=== PATIENT | female | born 1940 | race Caucasian/White ===

== ENCOUNTER 2018-11-10 05:47 | Inpatient (IN) ==
[2018-11-07 11:37] LABS: Basophils % 0.2 % (0.0-0.8); Eosinophils # 0.1 10*3/uL (0.0-0.87); Eosinophils % 0.5 % (0.00-10.9); Hematocrit 36.1 VOL% (35.7-47.0); Hemoglobin 11.3 GM/DL (12.0-16.0); Immature Granulocytes % 0.8 %; Immature Granulocytes Absolute 0.07 #; Lymphocytes # 0.9 10*3/uL (1.4-4.0); Mean Corpuscular HGB Conc 31.3 GM/DL (32-36); Mean Corpuscular Hemoglobin 27 PG (27-34); Mean Corpuscular Volume 86.2 FL (87-102); Monocytes # 0.5 10*3/uL (0.11-0.8); Monocytes % 5.7 % (1.7-12.7); Neutrophils # 7.7 10*3/uL (1.4-7.4); Neutrophils % 82.8 % (38.7-73.9); Platelet Count 330 T/CUMM (130-400); Red Blood Count 4.19 MC/CUMM (3.8-5.5); Red Cell Distribution Width 13.6 % (9.3-17.3); White Blood Count 9.3 T/CUMM (4-12)
[2018-11-07 12:07] LABS: Alanine Aminotransferase 15 U/L (13-56); Albumin 3.4 G/DL (3.4-5.0); Alkaline Phosphatase 127 U/L (45-117); Aspartate Amino Transferase 12 U/L (0-37); Bilirubin,Total < 0.39 MG/DL (0.2-1.0); Blood Urea Nitrogen 12 MG/DL (7-18); Calcium 9.3 MG/DL (8.5-10.1); Glucose 80 MG/DL (74-106); Osmolality,Calculated 273.7 MOS/KG (273-304); Potassium 3.5 MMOL/L (3.5-5.1); Sodium 138 MMOL/L (136-145)
[2018-11-10] MEDS ORDERED: LIDOCAINE 1%/EPI INJ 20 ML VIAL ONE ×2 (06:16→07:47)
[2018-11-10] MEDS ORDERED: metroNIDAZOLE INJ 500 MG in PREMIX 1 EACH IV ONE (06:30)
[2018-11-10] MEDS ORDERED: CIPROFLOXACIN INJ 400 MG in PREMIX 1 EACH IV ONE (06:30)
[2018-11-10] MEDS ORDERED: diphenhydrAMINE 50 MG/1 ML VIAL IV PRN (06:43)
[2018-11-10] MEDS ORDERED: PROMETHAZINE INJ 25 MG in SODIUM CHLORIDE 0.9% 50 ML IV PRN (06:43)
[2018-11-10] MEDS ORDERED: ONDANSETRON 4 MG/2 ML VIAL IV PRN (06:43)
[2018-11-10] MEDS ORDERED: MEPERIDINE 25 MG/1 ML VIAL IV PRN (06:43)
[2018-11-10] MEDS ORDERED: HYDROmorphone 2 MG/1 ML VIAL IV PRN (06:43)
[2018-11-10] MEDS ORDERED: TISSUE ADHESIVE 1 EACH APPLICATOR TOP ONE (06:51)
[2018-11-10] MEDS ORDERED: LEVOFLOXACIN INJ 100 ML IV ONE (07:47)
[2018-11-10] MEDS ORDERED: LEVOFLOXACIN INJ 500 MG in PREMIX 1 EACH IV ONE (07:54)
[2018-11-10] MEDS ORDERED: MORPHINE 4 MG/1 ML VIAL IV PRN (08:59)
[2018-11-10] MEDS ORDERED: DEXTROSE 5% NACL 0.45% 1,000 ML IV SCH (09:00)
[2018-11-10] MEDS ORDERED: fentaNYL 100 MCG/2 ML VIAL ONE (09:10)
[2018-11-10] MEDS ORDERED: SEVOFLURANE 1 UNIT/15 MINUTE INH ONE (09:10)
[2018-11-10] MEDS ORDERED: DEXAMETHASONE 10 MG/1 ML VIAL ONE (09:10)
[2018-11-10] MEDS ORDERED: PROPOFOL 200 MG/20 ML VIAL IV ONE (09:10)
[2018-11-10] MEDS ORDERED: ONDANSETRON 4 MG/2 ML VIAL ONE ×2 (09:11→09:18)
[2018-11-10] MEDS ORDERED: LACTATED RINGERS 1,000 ML IV ONE (09:11)
[2018-11-10] MEDS ORDERED: ESMOLOL 100 MG/10 ML VIAL IV ONE (09:11)
[2018-11-10] MEDS ORDERED: PHENYLEPHRINE 1 MG/10 ML SYRINGE IV ONE (09:11)
[2018-11-10] MEDS ORDERED: NEOSTIGMINE 10 MG/10 ML VIAL ONE (09:11)
[2018-11-10] MEDS ORDERED: ETOMIDATE 40 MG/20 ML VIAL IV ONE (09:11)
[2018-11-10] MEDS ORDERED: ROCURONIUM 100 MG/10 ML VIAL IV ONE (09:11)
[2018-11-10] MEDS ORDERED: GLYCOPYRROLATE 0.4 MG/2 ML VIAL ONE (09:11)
[2018-11-10] MEDS ORDERED: HYDROmorphone 2 MG/1 ML VIAL ONE (09:18)
[2018-11-10 09:54] LABS: Hematocrit 31.4 VOL% (35.7-47.0); Hemoglobin 9.7 GM/DL (12.0-16.0)
[2018-11-10] MEDS: ONDANSETRON 4 MG/2 ML VIAL IV PRN (11:08)
[2018-11-10] MEDS: ACETAMINOPHEN 325 MG/10.15 ML UDCUP PO PRN ×2 (15:11→21:47)
[2018-11-10 17:36] LABS: Hematocrit 35.1 VOL% (35.7-47.0); Hemoglobin 11.2 GM/DL (12.0-16.0)
[2018-11-10] MEDS: ROSUVASTATIN 10 MG TABLET PO SCH (20:21)
[2018-11-11 01:21] LABS: Hematocrit 32.9 VOL% (35.7-47.0); Hemoglobin 10.5 GM/DL (12.0-16.0)
[2018-11-11] MEDS: ACETAMINOPHEN 325 MG/10.15 ML UDCUP PO PRN (05:13)
[2018-11-11] MEDS: LEVOTHYROXINE 50 MCG TABLET PO SCH (06:10)
[2018-11-11 06:16] LABS: Basophils % 0.1 % (0.0-0.8); Hematocrit 34.8 VOL% (35.7-47.0); Hemoglobin 10.8 GM/DL (12.0-16.0); Immature Granulocytes % 0.7 %; Immature Granulocytes Absolute 0.09 #; Lymphocytes # 0.6 10*3/uL (1.4-4.0); Lymphocytes % 4.8 % (21.3-54.2); Mean Corpuscular Hemoglobin 26 PG (27-34); Mean Corpuscular Volume 84.5 FL (87-102); Mean Platelet Volume 9.6 FL (9.6-12.0); Monocytes # 0.7 10*3/uL (0.11-0.8); Monocytes % 5.3 % (1.7-12.7); Neutrophils # 11.5 10*3/uL (1.4-7.4); Neutrophils % 89.1 % (38.7-73.9); Platelet Count 341 T/CUMM (130-400); Red Blood Count 4.12 MC/CUMM (3.8-5.5); Red Cell Distribution Width 13.5 % (9.3-17.3); White Blood Count 12.9 T/CUMM (4-12)
[2018-11-11 06:43] LABS: Albumin 2.8 G/DL (3.4-5.0); Bilirubin,Total 0.4 MG/DL (0.2-1.0); Calcium 8.8 MG/DL (8.5-10.1); Osmolality,Calculated 279.3 MOS/KG (273-304); Potassium 2.9 MMOL/L (3.5-5.1); Total Protein 6.8 G/DL (6.4-8.3)
[2018-11-11 06:45] LABS: Lymphocytes 2 % (20-55); Myelocytes 1 %; Platelet Estimate Normal; Polychromasia Few; Segmented Neutrophils 97 % (50-85); Total Cells Counted 100
[2018-11-11] MEDS: PANTOPRAZOLE 40 MG TABLET PO SCH (10:11)
[2018-11-11] MEDS: ONDANSETRON 4 MG/2 ML VIAL IV PRN ×2 (10:11→15:01)
[2018-11-11] MEDS ORDERED: SODIUM PHOSPHATE ENEMA 133 ML BOTTLE RECTAL ONE (15:58)
[2018-11-11] MEDS ORDERED: SIMETHICONE CHEW 125 MG TABLET PO PRN (20:44)
[2018-11-11] MEDS: amLODIPine 5 MG TABLET PO SCH (22:59)
[2018-11-11] MEDS: ROSUVASTATIN 10 MG TABLET PO SCH (22:59)
[2018-11-12] MEDS: ONDANSETRON 4 MG/2 ML VIAL IV PRN ×2 (05:02→10:32)
[2018-11-12] MEDS: LEVOTHYROXINE 50 MCG TABLET PO SCH (06:27)
[2018-11-12] MEDS ORDERED: PROMETHAZINE 25 MG/1 ML VIAL IM PRN (06:48)
[2018-11-12] MEDS ORDERED: LEVOFLOXACIN INJ 500 MG in PREMIX 1 EACH IV SCH (08:00)
[2018-11-12] MEDS: POTASSIUM CHLORIDE RIDER 10 MEQ in PREMIX 1 EACH IV SCH ×5 (08:25→17:06)
[2018-11-12] MEDS ORDERED: PHENYLEPHRINE 1 MG/10 ML SYRINGE IV ONE (09:00)
[2018-11-12] MEDS ORDERED: LIDOCAINE 2% 5 ML VIAL ONE (09:00)
[2018-11-12] MEDS ORDERED: PROPOFOL 200 MG/20 ML VIAL IV ONE (09:00)
[2018-11-12] MEDS ORDERED: SUCCINYLCHOLINE 200 MG/10 ML VIAL ONE (09:00)
[2018-11-12] MEDS ORDERED: INDOMETHACIN SUPP 50 MG SUPP RECTAL ONE (11:26)
[2018-11-12] MEDS ORDERED: PROMETHAZINE 25 MG/1 ML VIAL ONE (11:26)
[2018-11-12] MEDS ORDERED: fentaNYL 100 MCG/2 ML VIAL ONE (11:27)
[2018-11-12] MEDS ORDERED: GLUCAGON 1 MG VIAL ONE (11:57)
[2018-11-12] MEDS: PANTOPRAZOLE 40 MG TABLET PO SCH (14:12)
[2018-11-12] MEDS: amLODIPine 5 MG TABLET PO SCH (14:12)
[2018-11-12] MEDS ORDERED: POTASSIUM CHLORIDE RIDER 10 MEQ in PREMIX 1 EACH IV ONE (17:30)
[2018-11-12] MEDS: ROSUVASTATIN 10 MG TABLET PO SCH (21:17)
[2018-11-13] MEDS: ONDANSETRON 4 MG/2 ML VIAL IV PRN (07:09)
[2018-11-13] MEDS: amLODIPine 5 MG TABLET PO SCH (09:18)
[2018-11-13] MEDS: LINEZOLID 600 MG TABLET PO SCH ×2 (09:18→21:52)
[2018-11-13] MEDS: POTASSIUM CHLORIDE 20 MEQ TABLET PO SCH ×3 (09:18→21:52)
[2018-11-13] MEDS: PANTOPRAZOLE 40 MG TABLET PO SCH (09:18)
[2018-11-13] MEDS: LEVOTHYROXINE 50 MCG TABLET PO SCH (09:18)
[2018-11-13] MEDS ORDERED: LACTATED RINGERS 1,000 ML IV ONE (14:18)
[2018-11-13 16:16] LABS: Basophils % 0.1 % (0.0-0.8); Eosinophils % 0.2 % (0.00-10.9); Hemoglobin 10.2 GM/DL (12.0-16.0); Immature Granulocytes % 0.6 %; Immature Granulocytes Absolute 0.11 #; Lymphocytes % 5.8 % (21.3-54.2); Mean Corpuscular HGB Conc 30.9 GM/DL (32-36); Mean Corpuscular Hemoglobin 26 PG (27-34); Mean Corpuscular Volume 85.3 FL (87-102); Mean Platelet Volume 9.5 FL (9.6-12.0); Monocytes # 1.1 10*3/uL (0.11-0.8); Monocytes % 6.4 % (1.7-12.7); Neutrophils # 14.9 10*3/uL (1.4-7.4); Neutrophils % 86.9 % (38.7-73.9); Platelet Count 315 T/CUMM (130-400); Red Blood Count 3.87 MC/CUMM (3.8-5.5); Red Cell Distribution Width 13.5 % (9.3-17.3); White Blood Count 17.1 T/CUMM (4-12)
[2018-11-13 16:40] LABS: Albumin 2.1 G/DL (3.4-5.0); Calcium 8.2 MG/DL (8.5-10.1); Osmolality,Calculated 273.8 MOS/KG (273-304); Potassium 3.9 MMOL/L (3.5-5.1); Total Protein 5.8 G/DL (6.4-8.3)
[2018-11-13 16:54] LABS: Apearance,Urine CLEAR (Clear); Bacteria,Urine Moderate /HPF (Few); Bilirubin,Urine Negative (Negative); Blood, Urine Small mg/dL (Negative); Glucose,Urine (UA) Negative (Negative); Ketones,Urine Negative (Negative); Nitrite,Urine Negative (Negative); Protein,Urine Negative; RBC,Urine 2 /HPF (0-4); Squamous Epithelial Cell,Urine Occasional /HPF (0-10); Urine Color Straw (Yellow); Urine Specific Gravity 1.002 (1.001-1.035); Urine Urobilinogen < 2.0 EU/DL (0.2-1.0); WBC,Urine 2 /HPF (0-6)
[2018-11-13] MEDS: ROSUVASTATIN 10 MG TABLET PO SCH (21:53)
[2018-11-14] MEDS: LEVOTHYROXINE 50 MCG TABLET PO SCH (06:25)
[2018-11-14 08:01] LABS: Basophils % 0.2 % (0.0-0.8); Eosinophils # 0.1 10*3/uL (0.0-0.87); Eosinophils % 1.4 % (0.00-10.9); Hemoglobin 10.7 GM/DL (12.0-16.0); Immature Granulocytes % 0.9 %; Immature Granulocytes Absolute 0.08 #; Lymphocytes # 1.3 10*3/uL (1.4-4.0); Lymphocytes % 14.2 % (21.3-54.2); Mean Corpuscular HGB Conc 31.5 GM/DL (32-36); Mean Corpuscular Hemoglobin 27 PG (27-34); Mean Corpuscular Volume 86.1 FL (87-102); Mean Platelet Volume 9.2 FL (9.6-12.0); Monocytes # 0.6 10*3/uL (0.11-0.8); Monocytes % 6.3 % (1.7-12.7); Platelet Count 357 T/CUMM (130-400); Red Blood Count 3.95 MC/CUMM (3.8-5.5); Red Cell Distribution Width 13.6 % (9.3-17.3); White Blood Count 9.1 T/CUMM (4-12)
[2018-11-14 08:49] VITALS: BP 132/60
[2018-11-14] MEDS: amLODIPine 5 MG TABLET PO SCH (09:35)
[2018-11-14] MEDS: PANTOPRAZOLE 40 MG TABLET PO SCH (09:35)
[2018-11-14] MEDS: LINEZOLID 600 MG TABLET PO SCH (09:35)
== END 2018-11-14 11:50 | disposition home or self-care (01) | DRG 418 ==
LOC: N.OR 05:47 → N.5E 06:03
PROVIDERS: ADMIT Surgery; ATTEND Surgery
PROC: LAPCHOL (2018-11-10 07:10)
PROC: ERCPWSP (ICD-10-PCS; 2018-11-12 11:35)

== ENCOUNTER 2021-12-10 11:18 | Inpatient (IN) ==
[2021-12-10 13:05] LABS: Basophils % 0.5 % (0.0-0.8); Eosinophils # 0.1 10*3/uL (0.0-0.87); Eosinophils % 0.9 % (0.00-10.9); Hematocrit 41.3 VOL% (35.7-47.0); Hemoglobin 13.5 GM/DL (12.0-16.0); Immature Granulocytes % 0.6 %; Immature Granulocytes Absolute 0.04 #; Lymphocytes # 0.9 10*3/uL (1.4-4.0); Lymphocytes % 14.4 % (21.3-54.2); Mean Corpuscular HGB Conc 32.7 GM/DL (32-36); Mean Corpuscular Volume 94.1 FL (87-102); Monocytes % 16.2 % (1.7-12.7); Neutrophils % 67.4 % (38.7-73.9); Platelet Count 262 T/CUMM (130-400); Red Blood Count 4.39 MC/CUMM (3.8-5.5); Red Cell Distribution Width 13.1 % (9.3-17.3); White Blood Count 6.5 T/CUMM (4-12)
[2021-12-10 13:30] LABS: Band Neutrophils 4 % (0-10); Lymphocytes 14 % (20-55); Segmented Neutrophils 63 % (50-85); Total Cells Counted 100
[2021-12-10 13:31] LABS: Hypochromia Slight; Platelet Estimate Adequate; Reactive Lymphocytes Few
[2021-12-10 14:20] LABS: Bacteria,Urine Moderate /HPF (Few); Bilirubin,Urine Negative (Negative); Blood, Urine Negative (Negative); Glucose,Urine (UA) Negative (Negative); Hyaline Casts,Urine 11 /LPF (0-3); Ketones,Urine 20 mg/dL (Negative); Mucus,Urine Moderate /LPF (Occasional); Nitrite,Urine Negative (Negative); Protein,Urine 30 MG/DL; RBC,Urine 9 /HPF (0-4); Squamous Epithelial Cell,Urine Many /HPF (0-10); Urine Appearance CLOUDY (Clear); Urine Color Amber (Yellow); Urine Specific Gravity 1.016 (1.001-1.035); Urine Urobilinogen < 2.0 EU/DL (<2.0)
[2021-12-10 14:37] LABS: Calcium 8.5 MG/DL (8.5-10.1); Osmolality,Calculated 278.3 MOS/KG (273-304); Potassium 2.9 MMOL/L (3.5-5.1)
[2021-12-10] MEDS ORDERED: LEVOFLOXACIN 500 MG TABLET PO STA (15:07)
[2021-12-10] MEDS ORDERED: POTASSIUM CHLORIDE 20 MEQ TABLET PO STA (16:13)
[2021-12-10] MEDS ORDERED: SODIUM CHLORIDE 0.9% 1,000 ML IV STA (16:13)
[2021-12-10] MEDS ORDERED: VANCOMYCIN 50 MG/ML 60 ML/BOTTLE PO ONE (16:25)
[2021-12-10] MEDS ORDERED: ONDANSETRON 4 MG/2 ML VIAL IV PRN (16:32)
[2021-12-10] MEDS ORDERED: ACETAMINOPHEN 325 MG TABLET PO PRN (16:32)
[2021-12-10] MEDS: DEXT 5% NACL 0.45% KCL 20 MEQ 20 MEQ/1,000 ML BAG IV SCH (18:21)
[2021-12-11] MEDS: ROSUVASTATIN 10 MG TABLET PO SCH ×3 (00:22→22:02)
[2021-12-11] MEDS: VANCOMYCIN 50 MG/ML 60 ML/BOTTLE PO SCH ×4 (00:22→18:25)
[2021-12-11] MEDS: DEXT 5% NACL 0.45% KCL 20 MEQ 20 MEQ/1,000 ML BAG IV SCH ×3 (00:48→17:21)
[2021-12-11 03:06] LABS: Basophils % 0.6 % (0.0-0.8); Eosinophils # 0.2 10*3/uL (0.0-0.87); Eosinophils % 2.9 % (0.00-10.9); Hematocrit 36.1 VOL% (35.7-47.0); Hemoglobin 11.7 GM/DL (12.0-16.0); Immature Granulocytes % 1.4 %; Immature Granulocytes Absolute 0.07 #; Lymphocytes # 1.1 10*3/uL (1.4-4.0); Lymphocytes % 21.6 % (21.3-54.2); Mean Corpuscular HGB Conc 32.4 GM/DL (32-36); Mean Corpuscular Volume 93.5 FL (87-102); Mean Platelet Volume 10.4 FL (9.6-12.0); Monocytes % 18.7 % (1.7-12.7); Neutrophils % 54.8 % (38.7-73.9); Platelet Count 244 T/CUMM (130-400); Red Blood Count 3.86 MC/CUMM (3.8-5.5); Red Cell Distribution Width 13.1 % (9.3-17.3); White Blood Count 5.1 T/CUMM (4-12)
[2021-12-11 03:30] LABS: Band Neutrophils 3 % (0-10); Eosinophils 5 % (0-10); Lymphocytes 24 % (20-55); Platelet Estimate Adequate; Segmented Neutrophils 57 % (50-85); Total Cells Counted 100
[2021-12-11 03:31] LABS: Hypochromia Slight; Microcytosis Slight
[2021-12-11 03:41] LABS: Albumin 2.3 G/DL (3.4-5.0); Bilirubin,Total 0.6 MG/DL (0.20-1.00); Calcium 7.5 MG/DL (8.5-10.1); Osmolality,Calculated 280.1 MOS/KG (273-304); Potassium 2.9 MMOL/L (3.5-5.1); Total Protein 5.7 G/DL (6.4-8.2)
[2021-12-11] MEDS: LEVOTHYROXINE 50 MCG TABLET PO SCH (05:43)
[2021-12-11] MEDS: LEVOFLOXACIN 750 MG TABLET PO SCH (08:55)
[2021-12-11] MEDS: amLODIPine 5 MG TABLET PO SCH (08:55)
[2021-12-11] MEDS: CLOPIDOGREL 75 MG TABLET PO SCH (08:59)
[2021-12-11] MEDS: PANTOPRAZOLE 40 MG VIAL IV SCH (09:01)
[2021-12-12] MEDS: VANCOMYCIN 50 MG/ML 60 ML/BOTTLE PO SCH ×4 (00:11→19:02)
[2021-12-12] MEDS: DEXT 5% NACL 0.45% KCL 20 MEQ 20 MEQ/1,000 ML BAG IV SCH ×4 (01:51→19:02)
[2021-12-12 05:45] LABS: Basophils % 0.7 % (0.0-0.8); Eosinophils # 0.3 10*3/uL (0.0-0.87); Eosinophils % 5.8 % (0.00-10.9); Hematocrit 35.4 VOL% (35.7-47.0); Hemoglobin 11.3 GM/DL (12.0-16.0); Immature Granulocytes % 2.8 %; Immature Granulocytes Absolute 0.12 #; Lymphocytes % 23.8 % (21.3-54.2); Mean Corpuscular HGB Conc 31.9 GM/DL (32-36); Mean Corpuscular Volume 95.4 FL (87-102); Mean Platelet Volume 10.2 FL (9.6-12.0); Monocytes % 14.7 % (1.7-12.7); Neutrophils % 52.2 % (38.7-73.9); Platelet Count 235 T/CUMM (130-400); Red Blood Count 3.71 MC/CUMM (3.8-5.5); Red Cell Distribution Width 13.2 % (9.3-17.3); White Blood Count 4.3 T/CUMM (4-12)
[2021-12-12 06:08] LABS: Blood Urea Nitrogen < 1 MG/DL (7-18); Calcium 7.9 MG/DL (8.5-10.1); Carbon Dioxide 24 MMOL/L (21-32); Estimated Glom Filtration Rate 77 ML/MIN; Glucose 123 MG/DL (74-106); Osmolality,Calculated 283.2 MOS/KG (273-304); Potassium 3.3 MMOL/L (3.5-5.1); Sodium 144 MMOL/L (136-145)
[2021-12-12] MEDS: LEVOTHYROXINE 50 MCG TABLET PO SCH (06:33)
[2021-12-12] MEDS ORDERED: MAGNESIUM SULF RIDER 4 GM/100 ML PREMIX IV PRN (07:50)
[2021-12-12] MEDS: MAGNESIUM SULF RIDER 2 GM/50 ML PREMIX IV PRN ×2 (09:48→13:12)
[2021-12-12] MEDS: PANTOPRAZOLE 40 MG VIAL IV SCH (09:49)
[2021-12-12] MEDS: CLOPIDOGREL 75 MG TABLET PO SCH (09:49)
[2021-12-12] MEDS: POTASSIUM CHLORIDE 20 MEQ TABLET PO PRN ×3 (09:49→16:40)
[2021-12-12] MEDS: LEVOFLOXACIN 750 MG TABLET PO SCH (09:49)
[2021-12-12] MEDS: amLODIPine 5 MG TABLET PO SCH (09:49)
[2021-12-12] MEDS: ROSUVASTATIN 10 MG TABLET PO SCH (20:06)
[2021-12-12] MEDS ORDERED: diphenhydrAMINE CAP 25 MG CAPSULE PO PRN (21:46)
[2021-12-13] MEDS: DEXT 5% NACL 0.45% KCL 20 MEQ 20 MEQ/1,000 ML BAG IV SCH ×2 (00:31→09:58)
[2021-12-13] MEDS: VANCOMYCIN 50 MG/ML 60 ML/BOTTLE PO SCH ×2 (00:31→05:23)
[2021-12-13 04:36] LABS: Basophils # 0.1 10*3/uL (0.0-0.2); Basophils % 1.4 % (0.0-0.8); Eosinophils # 0.3 10*3/uL (0.0-0.87); Eosinophils % 5.9 % (0.00-10.9); Hematocrit 38.8 VOL% (35.7-47.0); Hemoglobin 12.5 GM/DL (12.0-16.0); Immature Granulocytes % 5.1 %; Immature Granulocytes Absolute 0.25 #; Lymphocytes # 1.1 10*3/uL (1.4-4.0); Lymphocytes % 22.7 % (21.3-54.2); Mean Corpuscular HGB Conc 32.2 GM/DL (32-36); Mean Corpuscular Volume 94.4 FL (87-102); Mean Platelet Volume 9.8 FL (9.6-12.0); Monocytes % 15.3 % (1.7-12.7); Neutrophils % 49.6 % (38.7-73.9); Platelet Count 275 T/CUMM (130-400); Red Blood Count 4.11 MC/CUMM (3.8-5.5); Red Cell Distribution Width 12.9 % (9.3-17.3); White Blood Count 4.9 T/CUMM (4-12)
[2021-12-13 05:00] LABS: Calcium 7.9 MG/DL (8.5-10.1); Osmolality,Calculated 274.5 MOS/KG (273-304); Potassium 4.3 MMOL/L (3.5-5.1)
[2021-12-13 05:02] LABS: Eosinophils 4 % (0-10); Hypochromia Slight; Lymphocytes 24 % (20-55); Metamyelocytes 2 %; Microcytosis Slight; Reactive Lymphocytes Few; Segmented Neutrophils 58 % (50-85); Total Cells Counted 100
[2021-12-13 05:03] LABS: Ovalocytes Slight; Platelet Estimate Normal
[2021-12-13] MEDS: LEVOTHYROXINE 50 MCG TABLET PO SCH (05:29)
[2021-12-13 08:52] VITALS: BP 124/72
[2021-12-13] MEDS: amLODIPine 5 MG TABLET PO SCH (08:55)
[2021-12-13] MEDS: CLOPIDOGREL 75 MG TABLET PO SCH (08:55)
[2021-12-13] MEDS: LEVOFLOXACIN 750 MG TABLET PO SCH (08:55)
[2021-12-13] MEDS: PANTOPRAZOLE 40 MG VIAL IV SCH (09:58)
== END 2021-12-13 11:45 | disposition home or self-care (01) | DRG 373 ==
LOC: N.EDINP 11:18 → N.ED 11:18 → N.3E 20:55
PROVIDERS: ADMIT Internal Medicine; ATTEND Internal Medicine